=== PATIENT | male | born 1940 | race Caucasian/White ===

== ENCOUNTER → 2016-10-09 | Outpatient (CLI) | payer OTHER ==
[~2016-10-09] MED LIST: DIGO0.1267 PO; METO-551 PO; MULT-506 PO; WARF-246 PO; WARF5TAB90 PO
[2016-10-09 10:46] LABS: BASO % 1.5 %; BASO ABS # 0.08 K/uL (0-0.2); COMPLETE YES; EOS % 4.7 %; IG% 0.2 %; LYMPH % 27.2 %; LYMPH ABS # 1.46 K/uL (1.2-3.4); MEAN CELL VOLUME 90.1 fL (80-100); MEAN CORPUSCULAR HEMOGLOBIN 29.7 pg (25-34); MEAN CORPUSCULAR HGB CONC 32.9 g/dl (32-36); MEAN PLATELET VOLUME 10.2 fL (7.4-10.4); NEUT % 57.4 %; PLATELET COUNT 220 K/uL (130-400); RED BLOOD COUNT 4.55 M/uL (4.7-6.1); WHITE BLOOD COUNT 5.36 K/uL (4.8-10.8)
[2016-10-09 11:25] LABS: ALB/GLOB RATIO 0.9 (0.9-2); ALT/SGPT 21 U/L (12-78); AST/SGOT 21 U/L (15-37); BLOOD UREA NITROGEN 19 mg/dl (7-18); BUN/CREATININE RATIO 21.1 (10-20); CALCIUM 8.9 mg/dl (8.5-10.1); CARBON DIOXIDE 29 mmol/L (21-32); CHLORIDE 108 mmol/L (98-107); CHOLESTEROL 179 mg/dl (0-200); CHOLESTEROL/HDL RATIO 3.3; CREATININE 0.92 mg/dl (0.60-1.40); GLUCOSE 82 mg/dl (70-99); HDL CHOLESTEROL 54 mg/dl; LDL CHOLESTEROL CALCULATED 112 mg/dl; POTASSIUM 4.8 mmol/L (3.5-5.1); SODIUM 141 mmol/L (136-145); TRIGLYCERIDES 65 mg/dl (0-150); VERY LOW DENSITY LIPOPROT CALC 13 mg/dl
[2016-10-09 11:36] LABS: ALKALINE PHOSPHATASE 80 U/L (45-117); PROSTATE SPECIFIC ANTIGEN 0.933 ng/ml (0.000-4.000)
--- NOTE | 2016-10-19 11:58 | CODING QUERY MEDICAL NECESSITY ---
CQSUPPORTING DIAGNOSIS NEEDED A supporting diagnosis is required for the test/procedure performed on this patient in order for us to be reimbursed by the patient's insurance. Please provide a supporting diagnosis for the following test/procedure listed below next to the test name along with your signature. *If there is no additional diagnosis for this patient that would support the following test/procedure please document that below next to the test/procedure. Test(s)/Procedure(s) that require a supporting diagnosis: DOS 10/09/16 PROSTATE SPECIFIC TEST Provider Signature: Date: Thank you Kiara Sheikh [employer] Once completed, please kindly fax back to [phone] For questions please call [phone]
== END | disposition home or self-care (01) ==
LOC: C.LAB1850 09:43
PROVIDERS: ATTEND Internal Medicine
DX: Z00.00 Encounter for general adult medical examination without abnormal findings (principal); I48.91 Unspecified atrial fibrillation; E78.5 Hyperlipidemia, unspecified; C18.9 Malignant neoplasm of colon, unspecified; Z12.5 Encounter for screening for malignant neoplasm of prostate

== ENCOUNTER → 2017-03-16 | Outpatient (CLI) | payer OTHER ==
--- NOTE | 2017-03-16 11:41 | DIAGNOSTIC IMAGING REPORT ---
LUMBAR SPINE MRI HISTORY: back and left leg pain. OSTEOARTHRITIS,RADICULOPATHY TECHNIQUE: Multiplanar multisequence MRI of the lumbar spine was performed without the use of contrast. COMPARISON: None. FINDINGS: For the purpose of the report the L5-S1 disc space will be located on axial image of . No fractures within the lumbar spine. Severe disc space narrowing at L1-L2, L4-L5, and L5-S1. Moderate disc space narrowing at L3-L4 and mild to moderate disc space narrowing at L2-L3. There is also mild to moderate disc space narrowing within the lower thoracic spine. The conus terminates at the T12-L1 disc space. Paraspinal soft tissues are unremarkable. There is bilateral L5 spondylolysis. There is associated 5 mm of anterolisthesis of L5 on S1. Ttkd-nd-shrdgjje facet degenerative changes throughout the lumbar spine. T12-L1: Small broad-based posterior disc bulge without significant central canal or left-sided neural foraminal narrowing. There is moderate right-sided neural foraminal narrowing. L1-L2: Small broad-based posterior disc bulge without significant central canal narrowing. There is moderate right and mild left neural foraminal narrowing. L2-L3: Small broad-based posterior disc bulge without significant central canal or right-sided neural foraminal narrowing. There is moderate left-sided neural foraminal narrowing. L3-L4: Broad-based posterior disc bulge without significant central canal narrowing. There is mild right and owyv-va-pjhpgvqd left neural foraminal narrowing. L4-L5: Small broad-based posterior disc bulge without significant central canal narrowing. There is mild bilateral neural foraminal narrowing. L5-S1: No significant central canal narrowing. There is severe bilateral neural foraminal narrowing. IMPRESSION: 1. Degenerative changes as described above resulting in bilateral neural foraminal narrowing most pronounced at the L5-S1 level. No significant central canal narrowing. 2. No fractures within the lumbar spine. 3. Bilateral L5 spondylolysis with associated grade I anterolisthesis. Electronically signed by: Rhett Mueller M.D. 03/16/2017 11:39 AM Dictated Date/Time: 03/16/2017 11:31 AM
== END | disposition home or self-care (01) ==
LOC: C.MRI 10:01
PROVIDERS: ATTEND Nurse Practitioner
DX: M47.27 Other spondylosis with radiculopathy, lumbosacral region (principal); M48.07 Spinal stenosis, lumbosacral region

== ENCOUNTER → 2017-09-21 | Outpatient (CLI) | payer OTHER ==
[~2017-09-21] MED LIST changes: +CEPH500C PO; -DIGO0.1267 PO; +LNX125 PO
--- NOTE | 2017-09-21 14:12 | DIAGNOSTIC IMAGING REPORT ---
RIGHT LOWER EXTREMITY VENOUS DOPPLER HISTORY: M79.89 Swelling of right foot COMPARISON STUDY: None. FINDINGS: There is normal compressibility, flow, and augmentation within the right lower extremity deep venous system. IMPRESSION: No DVT within the right lower extremity Electronically signed by: Rhett Mueller M.D. 09/21/2017 2:10 PM Dictated Date/Time: 09/21/2017 2:10 PM
--- NOTE | 2017-09-21 14:21 | DIAGNOSTIC IMAGING REPORT ---
R ART DOP DUPLEX LWR EXT UNI HISTORY: ALTERED SENSATION OF RT FOOT, SWELLING OF RT FOOT COMPARISON STUDY: None. FINDINGS: The right SUNNY measured with the posterior tibial artery was 1.46 and the dorsalis pedis artery was 1.57. The left SUNNY measured with the posterior tibial artery was 1.40 and the dorsalis pedis artery was 1.45. Normal velocities and biphasic to triphasic waveforms seen throughout the right lower terminate arterial system. No evidence for stenosis or occlusion. IMPRESSION: 1. No significant stenosis or occlusion within the right lower extremity arterial system. 2. Normal bilateral ankle brachial indices. Electronically signed by: Rhett Mueller M.D. 09/21/2017 2:20 PM Dictated Date/Time: 09/21/2017 2:18 PM
== END | disposition home or self-care (01) ==
LOC: C.ULTR 13:15
PROVIDERS: ATTEND Nurse Practitioner
DX: M79.89 Other specified soft tissue disorders (principal); R20.9 Unspecified disturbances of skin sensation